=== PATIENT | female | born 1960 | race Caucasian/White ===

== ENCOUNTER 2025-03-23 04:34 | Emergency (ER) | payer OTHER, SELFPAY ==
[2025-03-23 04:38] VITALS: BP 139/70
[2025-03-23 05:26] LABS: Hematocrit 43.6 % (37.0-47.0); Hemoglobin 14.6 g/dL (12.0-16.0); Mean Corp Hgb Conc. 33.5 g/dL (33.0-37.0); Mean Corpuscular Volume 92.6 fL (81.0-99.0); Nucleated Red Blood Cells % 0 %; Platelet Count 224 10^3/uL (130-400); Red Cell Dist. Width 12.9 % (11.5-14.5)
[2025-03-23 05:52] LABS: ALT (SGPT) 25 U/L (0-35); AST (SGOT) 22 U/L (14-36); Albumin 4.4 g/dl (3.5-5.0); Alkaline Phosphatase 109 U/L (38-126); Blood Urea Nitrogen 33 mg/dl (7-17); Calcium 9.7 mg/dl (8.4-10.2); Carbon Dioxide 23 mmol/L (22-30); Chloride 111 mmol/L (98-107); Glucose 159 mg/dl (70-99); Potassium 4.9 mmol/L (3.5-5.1); Sodium 142 mmol/L (135-145); Total Protein 6.8 g/dl (6.3-8.2); eGFR > 60.00
--- NOTE | 2025-03-23 08:32 | ED.GENMED ---
History of Present Illness
General
Chief Complaint: Dizziness
Time Seen by Provider: 03/23/25 08:00
History of Present Illness
History of Present Illness:
64-year-old female with prior history of CVA on aspirin, hypertension, hyperlipidemia presenting to the emergency department for dizziness. Patient reports she woke up at 3:30 AM this morning to go to the bathroom. When she got up felt dizzy and
fell like she was leaning toward the left. Notes history of stroke in the past in 2022, which did present similarly, however was more intense at that time. Notes by the time that she arrived to the hospital, felt symptoms had improved. Denies
focal weakness or sensory deficits. Denies chest pain, difficulty breathing, visual changes. Denies fever or recent illness. Denies additional acute medical complaints
Phy Exam
Physical Exam
Physical Exam:
General: Well-appearing, no clinical signs of dehydration, nontoxic and in no acute distress
HEENT: protecting airway, pupils equal and reactive, extraocular movements intact
Neck: appears supple
CV: Normal heart rate, regular rhythm
Resp: No accessory muscle use, no increased work of breathing, lungs clear to auscultation bilaterally
Abd: No distention
Extremities: No deformities, no swelling
Neuro: alert, no focal neurologic deficit
: deferred
Rectal: deferred
Psych: Normal affect
Skin: Intact
Scores
NIH Stroke Score
Level of Consciousness: 0 - Alert
LOC Questions: 0-Answers both correctly
LOC Commands: 0-Performs both correctly
Best Horizontal Gaze: 0-Normal
Visual [place]: 0=Normal, no visual loss
Facial Palsy: 0=Normal, symmetrical
Motor - Right Arm: 0=No drift 10 seconds
Motor - Left Arm: 0=No drift 10 seconds
Motor - Right Le-No drift 5 seconds
Motor - Left Le-No drift 5 seconds
Limb Ataxia: 0-Absent
Sensation: 0-Normal
Best Language: 0-No aphasia
Dysarthria: 0-Normal
Extinction and Inattention: 0-No abnormality
NIH Total Score:: 0
Course
Orders/Labs/Results
Orders:
Orders
03/23/25 04:44
CT Head W/o Iv Contrast Urgent
Comment:
Reason For Exam: here with dizziness, hx vertebral artery occlusion
03/23/25 04:57
CMP [Comprehensive Metabolic Panel] Urgent
Complete Blood Count/With Diff Urgent
03/23/25 08:18
EKG- Treatment ONCE
Orthostatic VS- Treatment ONCE
03/23/25 08:19
Electrocardiogram (*1) Urgent
Reason for Study: Other
Other Reason for Exam: dizziness
Abnormal Lab Results
03/23/25
04:57
Absolute Monos (auto) 0.7 H 10^3/uL
(0.1-0.6)
Chloride 111 H mmol/L
(98-107)
BUN 33 H mg/dl
(7-17)
Glucose 159 H mg/dl
(70-99)
03/23/25 04:57
03/23/25 04:57
Vital Signs
Initial and Last Documented VS:
Initial Vital Signs
Temp Pulse Resp BP Pulse Ox
98.8 F 64 14 139/70 96
03/23/25 04:38 03/23/25 04:38 03/23/25 04:38 03/23/25 04:38 03/23/25 04:38
Last Documented Vital Signs
Temp Pulse Resp BP Pulse Ox
98.8 F 64 14 139/70 96
03/23/25 04:38 03/23/25 04:38 03/23/25 04:38 03/23/25 04:38 03/23/25 08:33
MDM/Problems Addressed
MDM/Problems Addressed:
64-year-old female with prior history of CVA on aspirin, hypertension, hyperlipidemia presenting for dizziness. Vital signs on arrival are normal.
On exam patient resting comfortably, no acute distress, notes symptoms have improved since onset. Unremarkable neurologic exam, no focal neurologic deficits, with strength and sensation intact bilaterally. Patient ambulated, normal gait. At this
time lower suspicion for acute CVA. Patient reports she recently started some new blood pressure medication, has had some difficulty sleeping. Also notes increased level of stress. Do suspect that this could be can symptoms. Laboratory analysis
and CT imaging obtained prior to my arrival, pending read of CT. Unremarkable labs. Will add on EKG as well as orthostatic vital signs and reassess
09:30 - CT without acute intracranial abnormality. Orthostatics are normal. Patient remains asymptomatic. At this time again low suspicion for CVA. Feel stable for discharge, however did advise close interval follow-up with her primary care
doctor and return with any worsening or return of symptoms. Patient verbalized understanding
*Pulse Oximetry
SaO2: 96
Oxygen Mode of Delivery: Room air
Patient hypoxic: no
*Critical Care Note
Total Time (30-74mins, 75-104mins- exclusive of procedures): Not Applicable
ED Attending Note
-
Portions of this chart may have been created with voice recognition software.� Occasional wrong word or��sound alike� substitutions may have occurred due to the inherent limitations of voice recognition software.
Discharge Plan
Departure
Patient with high blood pressure during this ER visit?: No
Condition: Good
Discharge Problem:
Dizziness
Instructions: Dizziness
Prescriptions:
No Action
lisinopril 20 mg tablet
20 mg PO QPM
therapeutic multivitamin Tablet
1 tab PO DAILY
levothyroxine 88 mcg tablet
88 mcg PO DAILY AT 0700
metoprolol succinate 25 mg tablet extended release 24 hr
25 mg PO QPM
atorvastatin 80 mg Tablet
80 mg PO QPM Qty: 30 0RF
clopidogrel 75 mg Tablet
75 mg PO DAILY Qty: 28 0RF
aspirin 81 mg Tablet,Delayed Release (Dr/Ec)
81 mg PO DAILY Qty: 30 0RF
Referrals:
Veronica Rojas MD [Family Provider, Internal Medicine]
Activity Restrictions/Additional Instructions:
You were seen in the emergency department for dizziness
You were found to have reassuring laboratory analysis, EKG, CT imaging of your brain.
Please follow-up closely with your primary care physician.
Return to the emergency department for any worsening of your symptoms, or any development of chest pain, difficulty breathing, abdominal pain with persistent vomiting and inability to tolerate food or liquid by mouth (concern for dehydration),
weakness, headache or confusion, fever greater than 100.4, or any additional symptoms that are concerning to you.
Thank you for choosing [facility].
Interventions
Interventions:
*Risk Screen - Suicide (C-SSRS) Last Done: 03/23/25 04:38
Discharge Date and Time
Print Language: SWAZI
[2025-03-23 09:29] VITALS: BP 117/75; BP 133/69; BP 139/80; PULSE 67; PULSE 74; PULSE 77
== END 2025-03-23 10:07 | disposition home or self-care (01) ==
LOC: EMR 04:34
PROVIDERS: Emergency Medicine; EMERGENCY PHYSICIAN Student in an Organized Health Care Education/Training Program; FAMILY PHYSICIAN Student in an Organized Health Care Education/Training Program
DX: R42 Dizziness and giddiness (principal); I10 Essential (primary) hypertension; E78.5 Hyperlipidemia, unspecified; Z86.73 Personal history of transient ischemic attack (TIA), and cerebral infarction without residual deficits
CPT/HCPCS: 99284; 70450; 80053; 85025; 93005